=== PATIENT | female | born 1965 | race Caucasian/White ===

== ENCOUNTER 2021-11-12 00:27 | Outpatient (CLI) | payer MEDICAID, SELFPAY ==
--- NOTE | 2021-11-12 07:15 | DI.CTLCSR_ITS ---
Exam(s) CT CHEST LUNG CANCER SCREEN EXAM: CT CHEST LUNG CANCER SCREEN CLINICAL HISTORY: Screening for lung cancer,former smoker, z87.891 TECHNIQUE: Imaging Protocol: Axial computed tomography images with coronal and sagittal reformatted images were created and reviewed COMPARISON: No exams were available for comparison FINDINGS: Tracheobronchial tree: Patent where visualized. Pulmonary parenchyma: No consolidation or dominant measurable mass. There is an area of scarring in t he right lung base. Lung Nodules: None. Mediastinum and Yani: No dominant adenopathy or fluid collection. The esophagus is unremarkable. Thyroid gland: Unremarkable. Lymph nodes: Unremarkable. Pleura: No effusion or pneumothorax. Heart: The heart is not dilated. No coronary artery calcifications are seen. No pericardial effusion . Aorta: Thoracic aorta non-dilated.Mild atherosclerosis. Upper abdomen: Unremarkable. Soft Tissues: Unremarkable. Bones: Within normal limits. IMPRESSION: No pulmonary nodules. Lung RADS Cat 1 - Negative: No nodules and definitely benign nodules Lung-RADS 1.0 CATEGORIES: Category 0 - Prior chest CT exam(s) being located for comparison. Category 1 - Annual screening in 12 months. No nodules or definitely benign nodules. Category 2 - Annual screening in 12 months. Benign appearance. Nodules with low likelihood of becomin g active cancer. Category 3 - 6-month follow-up. Probably benign. Short-term follow-up suggested. Nodules with low lik elihood of becoming active cancer. Category 4A - 3-month follow-up and CT/PET if >8 mm in size. Suspicious finding. Findings which requi re additional testing. Category 4B - Findings which require additional testing and tissue sampling. Suspicious finding. Category 4X - Category 3 or 4 nodules with additional features or imaging findings that increases the suspicion of malignancy. Modifier S- Potentially clinically significant finding. (Non lung cancer) RADIATION DOSE DELIVERED: 76.62mGy.cm Total DLP !Error CTDIvol 76.62mGy.cm Total DLP 2.21mGy CTDIvol DATA REPOSITORY: All CT scans at this facility are submitted to the National Radiology Data Registry (NRDR) Dose Index Registry (DIR) with the [employer] ([employer]). RADIATION OPTIMIZATION: All CT scans at this facility use at least one of these dose optimization te chniques: automated exposure control; mA and/or kV adjustment per patient size (includes targeted exa ms where dose is matched to clinical indication); or iterative reconstruction.
--- NOTE | 2021-11-12 07:15 | DI.MAMMO_ITS ---
Exam(s) MAMMO SCREENING EXAM: MAMMO SCREENING CLINICAL HISTORY: screening,z12.39 TECHNIQUE: Bilateral full field digital CC and MLO mammographic images were obtained with 3D tomosyn thesis and utilizing computer aided detection (CAD). COMPARISON: Available for comparison. FINDINGS: Masses/Architectural Distortion: None seen. Microcalcifications: No suspicious pleomorphic-type are seen. Skin Thickening/Nipple Retraction: None. IMPRESSION: 1. No significant interval change with no specific features of malignancy noted. 2. Unless there is more urgent need, screening mammography is recommended, as per [employer] guidelines. BI-RADS Category 1 - Negative Breast Density - Category B - Scattered areas of fibroglandular density Breast density category C or D implies that the patient has dense breast tissue. Dense breast tissue is very common and is not abnormal but dense breast tissue can make it harder to find cancer on a ma mmogram. Also, dense breast tissue may increase their breast cancer risk. This information about the result of the mammogram report was provided to the patient to raise their awareness. Use this report when you speak with the patient about their risks for breast cancer, which includes their family hist ory. At that time, you may recommend for more screening tests (Ultrasound or MRI) as they might be us eful based on their risk. A negative radiographic report should not delay biopsy if a dominant or clinically suspicious mass is present. Up to ten percent of cancers are not identified on mammography. A negative report may reinforce clinical impression. Adenosis and dense breasts may obscure an underlying neoplasm. False positive reports average 6 to 10%. Patient will receive a letter notifying them of these results.
== END 2021-11-12 00:47 ==
PROVIDERS: PCP Family Medicine; Visit Provider Family Medicine
DX: Z87.891 Personal history of nicotine dependence (principal); Z12.31 Encounter for screening mammogram for malignant neoplasm of breast; Z12.2 Encounter for screening for malignant neoplasm of respiratory organs
CPT/HCPCS: 71271; 77063; 77067

== ENCOUNTER 2021-11-12 02:23 | Outpatient (CLI) | payer MEDICAID, SELFPAY ==
[2021-11-12 12:31] LABS: HCT 33.6 % (36.0-46.0); HGB 10.1 g/dL (11.2-15.7); MCH 18.7 pg (27.0-33.0); MCHC 30.1 % (32.0-36.0); Platelet Count 316 10^3/uL (130-400); RBC 5.39 10^6/uL (3.93-5.22); RDW 16.4 % (11.7-14.6); RDW-SD 34.9 fL; WBC 9.32 10^3/uL (4.4-10.8)
[2021-11-12 12:42] LABS: Hemoglobin A1C 5.6 % (<5.7)
[2021-11-12 13:08] LABS: MCV 62.3 fL (80-95)
[2021-11-12 13:23] LABS: Iron 61 ug/dL (50-170); Total Iron Binding Capacity 323 ug/dL (250-450); Transferrin Sat 19 % (15-50)
[2021-11-12 13:24] LABS: COMMENT (LAB VIEW ONLY) 32.85 mg/dL; Microalb ug/mg Crea 9.7 ug/mg Cr
[2021-11-12 13:35] LABS: ALT 33 U/L (14-59); AST 16 U/L (15-37); Albumin 4.1 g/dL (3.4-5.0); Alkaline Phosphatase 88 U/L (46-116); Anion Gap 10.5 mmol/L (3-11); BUN 14 mg/dL (7-18); Bilirubin, Total 0.4 mg/dL (0.2-1.0); CO2 28.5 mmol/L (21.0-32.0); CREATININE 0.8 mg/dL (0.55-1.02); Calcium 9.5 mg/dL (8.5-10.1); Calculated LDL 61 mg/dL (<100); Chloride 103 mmol/L (98-107); Cholesterol 135 mg/dL (<200); Ferritin 126 ng/mL (8-252); Glucose 91 mg/dL (74-106); HDL Cholesterol 53 mg/dL (40-60); Potassium 4.3 mmol/L (3.5-5.1); Sodium 142 mmol/L (136-145); TSH (W/Ref FT4) 2.56 uIU/mL (0.36-3.74); Total Protein 7.4 g/dL (6.4-8.2); Triglyceride 108 mg/dL (<150)
[2021-11-14 13:31] LABS: HIV-1/2 Ag & Ab Screen Negative (Negative)
[2021-11-15 06:42] LABS: Vitamin D 25 Total 31.2 ng/mL (30-100)
[2021-11-15 09:54] LABS: Hepatitis C Ab w Rflx HCV PCR Negative (Negative)
== END 2021-11-12 02:24 | disposition home or self-care (01) ==
LOC: LBO 02:24
PROVIDERS: PCP Family Medicine; Visit Provider Family Medicine
DX: D56.3 Thalassemia minor (principal); D64.9 Anemia, unspecified; E11.9 Type 2 diabetes mellitus without complications; E55.9 Vitamin D deficiency, unspecified; I10 Essential (primary) hypertension; Z11.59 Encounter for screening for other viral diseases
CPT/HCPCS: 36415; 80053; 80061; 82306; 85027; 86803; 87389; 82043; 82570; 82728; 83036; 83540; 83550; 84443

== ENCOUNTER 2022-06-09 02:53 | Outpatient (CLI) | payer BC, SELFPAY ==
--- NOTE | 2022-06-09 15:25 | DI.RAD_ITS ---
Exam(s) XR SHOULDER RT COMPLETE 2+V EXAM: XR SHOULDER RT COMPLETE 2+V CLINICAL HISTORY: Repetitive motion right shoulder/pins/needles,M25.519. TECHNIQUE: 2D digital imaging was performed of the right shoulder. Five images were obtained. AP, Grashey, Y-view and axillary views were obtained. COMPARISON: No exams were available for comparison FINDINGS: BONES: No acute fracture is present. No bony destructive lesion is seen. JOINTS: No dislocation present. SOFT TISSUE: Normal. IMPRESSION: Unremarkable radiographs of the right shoulder. DATA REPOSITORY: RADIATION DOSE DELIVERED:
== END 2022-06-09 03:13 ==
LOC: DI 02:53
PROVIDERS: Visit Provider Nurse Practitioner Family
DX: M25.511 Pain in right shoulder (principal)
CPT/HCPCS: 73030

== ENCOUNTER 2022-11-14 03:34 | Outpatient (CLI) | payer BC, SELFPAY ==
[2022-11-14 07:48] LABS: HCT 32.4 % (36.0-46.0); HGB 10.1 g/dL (11.2-15.7); MCH 18.9 pg (27.0-33.0); MCHC 31.2 % (32.0-36.0); MCV 61 fL (80-95); RDW 16.6 % (11.7-14.6); RDW-SD 34.3 fL; WBC 9.57 10^3/uL (4.4-10.8)
[2022-11-14 08:22] LABS: RBC 5.34 10^6/uL (3.93-5.22)
[2022-11-14 08:41] LABS: Anion Gap 9.4 mmol/L (3-11); BUN 12 mg/dL (7-18); CO2 27.6 mmol/L (21.0-32.0); CREATININE 0.9 mg/dL (0.55-1.02); Calcium 9.4 mg/dL (8.5-10.1); Chloride 106 mmol/L (98-107); Estimated GFR 75.03 (mL/min/1.73m2); Glucose 102 mg/dL (74-106); Potassium 4.2 mmol/L (3.5-5.1); Sodium 143 mmol/L (136-145)
== END 2022-11-14 03:35 | disposition home or self-care (01) ==
PROVIDERS: PCP Nurse Practitioner Family; Visit Provider Nurse Practitioner Family
DX: I10 Essential (primary) hypertension (principal); D56.3 Thalassemia minor
CPT/HCPCS: 36415; 80048; 85027

== ENCOUNTER 2023-10-30 12:46 | Outpatient (REF) | payer BC, SELFPAY ==
--- NOTE | 2023-10-30 08:45 | PAPFT_PTH ---
PATIENT: Irene Floyd LOC: [facility] U#:[id number] AGE/SX: 58/F ROOM: RE10/30/[address]: Jan Flynn DNP : 1965 BED: DIS: 10/30/2023 SPEC #: [id number] RECD: 10/30/23 13:00 STATUS: ARPIT REShayy #: [id number] [place]: 10/30/23 08:[address]: Jan Cao DEPT: [facility] Cytology RECD BY: Inge Machuca Tissues: 1 - CX/ENDOCX FOR PAP SMEARS Procedures: PAP THIN PREP/UVM Screening HPV DNA PROBE Comments: [id number]
== END 2023-10-30 12:47 | disposition home or self-care (01) ==
LOC: LBN 12:46
PROVIDERS: PCP Nurse Practitioner Family; Visit Provider Nurse Practitioner Family
DX: Z12.4 Encounter for screening for malignant neoplasm of cervix (principal); Z11.51 Encounter for screening for human papillomavirus (HPV)
CPT/HCPCS: 88142; 87624

== ENCOUNTER → 2023-11-09 02:43 | Outpatient (CLI) | payer BC, SELFPAY ==
--- NOTE | 2023-11-09 07:51 | DI.MAMMO_ITS ---
Exam(s) MAMMO SCREENING EXAM: MAMMO SCREENING CLINICAL HISTORY: screening,Z12.39 TECHNIQUE: Bilateral full field digital CC and MLO mammographic images were obtained with 3D tomosyn thesis and utilizing computer aided detection (CAD). COMPARISON: Available for comparison. FINDINGS: Masses/Architectural Distortion: None seen. Microcalcifications: No suspicious pleomorphic-type are seen. Skin Thickening/Nipple Retraction: None. IMPRESSION: 1. No significant interval change with no specific features of malignancy noted. 2. Unless there is more urgent need, screening mammography is recommended, as per [employer] guidelines. BI-RADS Category 1 - Negative Breast Density - Category B - Scattered areas of fibroglandular density Breast density category C or D implies that the patient has dense breast tissue. Dense breast tissue is very common and is not abnormal but dense breast tissue can make it harder to find cancer on a ma mmogram. Also, dense breast tissue may increase their breast cancer risk. This information about the result of the mammogram report was provided to the patient to raise their awareness. Use this report when you speak with the patient about their risks for breast cancer, which includes their family hist ory. At that time, you may recommend for more screening tests (Ultrasound or MRI) as they might be us eful based on their risk. A negative radiographic report should not delay biopsy if a dominant or clinically suspicious mass is present. Up to ten percent of cancers are not identified on mammography. A negative report may reinforce clinical impression. Adenosis and dense breasts may obscure an underlying neoplasm. False positive reports average 6 to 10%. Patient will receive a letter notifying them of these results.
== END ==
PROVIDERS: PCP Nurse Practitioner Family; Visit Provider Nurse Practitioner Family
DX: Z12.31 Encounter for screening mammogram for malignant neoplasm of breast (principal); I10 Essential (primary) hypertension
CPT/HCPCS: 77063; 77067

== ENCOUNTER 2023-11-09 05:05 | Outpatient (CLI) | payer BC, SELFPAY ==
[2023-11-09 07:32] LABS: HGB 10.3 g/dL (11.2-15.7); MCH 18.9 pg (27.0-33.0); MCHC 30.3 % (32.0-36.0); MCV 62 fL (80-95); RBC 5.46 10^6/uL (3.93-5.22); RDW 16.5 % (11.7-14.6); RDW-SD 34.7 fL; WBC 7.88 10^3/uL (4.4-10.8)
[2023-11-09 07:51] LABS: Platelet Count 313 10^3/uL (130-400)
[2023-11-09 08:19] LABS: Anion Gap 8.4 mmol/L (3-11); BUN 13 mg/dL (7-18); CO2 27.6 mmol/L (21.0-32.0); CREATININE 0.9 mg/dL (0.55-1.02); Calcium 9.5 mg/dL (8.5-10.1); Chloride 107 mmol/L (98-107); Estimated GFR 74.57 (mL/min/1.73m2); Glucose 114 mg/dL (74-106); Potassium 4.1 mmol/L (3.5-5.1); Sodium 143 mmol/L (136-145); TSH (W/Ref FT4) 2.24 uIU/mL (0.36-3.74)
== END 2023-11-09 05:06 | disposition home or self-care (01) ==
LOC: LBO 05:05
PROVIDERS: PCP Nurse Practitioner Family; Visit Provider Nurse Practitioner Family
DX: D64.9 Anemia, unspecified (principal); R23.9 Unspecified skin changes; I10 Essential (primary) hypertension
CPT/HCPCS: 36415; 80048; 85027; 84443

== ENCOUNTER 2024-06-04 15:27 | Outpatient (CLI) | payer BC, SELFPAY ==
--- NOTE | 2024-06-04 08:30 | DI.RAD_ITS ---
Exam(s) XR WRIST RT LIMITED EXAM: XR WRIST RT LIMITED CLINICAL HISTORY: F/U FRACTURE. TECHNIQUE: 2D digital imaging was performed of the right wrist. Two views were obtained. PA and la teral views were obtained. COMPARISON: CR XR WRIST MIN 3 VIEWS RT from 05/17/2024 FINDINGS: BONES: There has been no change in alignment of the intra-articular nondisplaced fracture of the dist al right radius. No bony destructive lesion is seen. JOINTS: The carpal bones are normally aligned. SOFT TISSUE: Normal. IMPRESSION: Stable nondisplaced intra-articular distal radial fracture. DATA REPOSITORY: RADIATION DOSE DELIVERED:
== END 2024-06-04 15:28 ==
LOC: DIORS 15:27
PROVIDERS: PCP Nurse Practitioner Family; Visit Provider Student in an Organized Health Care Education/Training Program
DX: S52.571D Other intraarticular fracture of lower end of right radius, subsequent encounter for closed fracture with routine healing (principal); X58.XXXD Exposure to other specified factors, subsequent encounter
CPT/HCPCS: 73100

== ENCOUNTER 2024-07-02 10:40 | Outpatient (CLI) | payer BC, SELFPAY ==
--- NOTE | 2024-07-02 07:45 | DI.RAD_ITS ---
Exam(s) XR WRIST RT LIMITED EXAM: XR WRIST RT LIMITED INDICATION: F/U FRACTURE. COMPARISON: No exams were available for comparison TECHNIQUE: 2D digital imaging was performed. Two views. FINDINGS: Increased healing at the distal radial fracture. Soft tissue swelling remains present. No new abnor malities. DATA REPOSITORY: RADIATION DOSE DELIVERED:
== END 2024-07-02 10:41 | disposition home or self-care (01) ==
LOC: DIORS 10:43
PROVIDERS: PCP Nurse Practitioner Family; Visit Provider Student in an Organized Health Care Education/Training Program
DX: S52.571D Other intraarticular fracture of lower end of right radius, subsequent encounter for closed fracture with routine healing (principal); X58.XXXD Exposure to other specified factors, subsequent encounter
CPT/HCPCS: 73100

== ENCOUNTER 2024-08-20 15:55 | Outpatient (CLI) | payer BC, SELFPAY ==
--- NOTE | 2024-08-20 08:30 | DI.RAD_ITS ---
Exam(s) XR WRIST RT LIMITED EXAM: XR WRIST RT LIMITED CLINICAL HISTORY: F/U FRACTURE. TECHNIQUE: 2D digital imaging was performed of the right wrist. Two views were obtained. PA and la teral views were obtained. COMPARISON: CR XR WRIST RT LIMITED from 06/04/2024 CR XR WRIST RT LIMITED from 07/02/2024 FINDINGS: BONES: There has been continued healing of the distal radial fracture. A faint oblique component of the fracture is seen on the AP view. No new fractures identified. No bony destructive lesion is see n. JOINTS: The carpal bones are normally aligned. SOFT TISSUE: Normal. IMPRESSION: Continued healing of the distal right radial fracture. DATA REPOSITORY: RADIATION DOSE DELIVERED:
== END 2024-08-20 15:56 | disposition home or self-care (01) ==
LOC: DIORS 15:55
PROVIDERS: PCP Nurse Practitioner Family; Visit Provider Student in an Organized Health Care Education/Training Program
DX: S52.571D Other intraarticular fracture of lower end of right radius, subsequent encounter for closed fracture with routine healing (principal); X58.XXXD Exposure to other specified factors, subsequent encounter
CPT/HCPCS: 73100

== ENCOUNTER 2024-11-04 02:45 | Outpatient (CLI) | payer BC, SELFPAY ==
[2024-11-04 07:24] LABS: HCT 32.9 % (36.0-46.0); HGB 10.3 g/dL (11.2-15.7); MCH 19.1 pg (27.0-33.0); MCHC 31.3 % (32.0-36.0); Platelet Count 380 10^3/uL (130-400); RBC 5.39 10^6/uL (3.93-5.22); RDW 16.4 % (11.7-14.6); RDW-SD 34.1 fL; WBC 8.26 10^3/uL (4.4-10.8)
[2024-11-04 07:49] LABS: MCV 61 fL (80-95)
[2024-11-04 07:58] LABS: Anion Gap 6.9 mmol/L (3-11); BUN 17 mg/dL (7-18); CO2 27.1 mmol/L (21.0-32.0); Calcium 9.2 mg/dL (8.5-10.1); Chloride 107 mmol/L (98-107); Glucose 125 mg/dL (74-106); Potassium 4.3 mmol/L (3.5-5.1); Sodium 141 mmol/L (136-145)
[2024-11-04 21:47] LABS: HBs Antibody, Quant <3.1 mIU/mL (See Note); Hep B Surface Ab Negative (See Note); Hepatitis B Core Antibody Negative (Negative); Hepatitis B Surface Antigen Negative (Negative)
== END 2024-11-04 02:46 | disposition home or self-care (01) ==
PROVIDERS: PCP Nurse Practitioner Family; Visit Provider Nurse Practitioner Family
DX: D64.9 Anemia, unspecified (principal); I10 Essential (primary) hypertension; Z11.59 Encounter for screening for other viral diseases
CPT/HCPCS: 36415; 80048; 85027; 86704; 86706; 87340